=== PATIENT | male | born 1945 | race Asian ===

== ENCOUNTER 2022-06-05 10:09 | Emergency (ER) | payer OTHER ==
[2022-06-05 10:25] VITALS: BP 115/62; PULSE 58; RESP 17; TEMP 97.3; BMI 22.6
[2022-06-05] MEDS ORDERED: ACETAMINOPHEN 1000 MG/100 ML BAG IVPB ONE (12:05)
[2022-06-05] MEDS ORDERED: ACETAMINOPHEN INJECTION 100 ML IVPB ONE (12:17)
[2022-06-05 12:49] LABS: HEMATOCRIT 44.6 % (35.4-49); HEMOGLOBIN 15.4 GM/dL (11.7-16.9); MCH 35.3 pg (25.7-33.7); MCHC 34.4 g/dl (32.0-35.9); MEAN CELL VOLUME 102.6 fl (80-96); MEAN PLT VOLUME 7.7 fl (7.5-11.1); PLATELET COUNT 186 10^3/uL (134-434); RBC 4.34 M/mm3 (4.00-5.60); RDW 13.3 % (11.9-15.9); WHITE BLOOD COUNT 9.5 K/mm3 (4.0-10.0)
[2022-06-05 13:11] LABS: CALCIUM 9.3 mg/dL (8.5-10.1)
[2022-06-05 13:12] LABS: ALBUMIN 3.9 g/dl (3.4-5.0); BLOOD UREA NITROGEN 23.9 mg/dL (7-18)
[2022-06-05 13:15] LABS: CREATININE 0.9 mg/dL (0.55-1.3)
[2022-06-05 13:17] LABS: TOT PROT 6.8 g/dl (6.4-8.2)
[2022-06-05 13:21] LABS: PH,URINE 5.5 (5.0-8.0); URINE APPEARANCE CLEAR; URINE BILIRUBIN NEGATIVE (NEGATIVE); URINE COLOR YELLOW; URINE GLUCOSE (UA) NEGATIVE (NEGATIVE); URINE KETONE NEGATIVE (NEGATIVE); URINE LEUK ESTERASE NEGATIVE (NEGATIVE); URINE NITRITE NEGATIVE (NEGATIVE); URINE PROTEIN NEGATIVE (NEGATIVE)
[2022-06-05] MEDS ORDERED: KETOROLAC TROMETHAMINE 15 MG/ML VIAL IVPUSH ONE (15:23)
[2022-06-05] MEDS ORDERED: METHOCARBAMOL 500 MG TABLET PO ONE (15:24)
[2022-06-05] MEDS ORDERED: METHOCARBAMOL 500 MG TABLET ONE (15:29)
[2022-06-05] MEDS ORDERED: KETOROLAC TROMETHAMINE 15 MG/ML VIAL ONE (15:29)
== END 2022-06-05 16:41 | disposition home or self-care (01) ==
LOC: JERFT 10:09
PROC: 3E033GC Introduction of Other Therapeutic Substance into Peripheral Vein, Percutaneous Approach (ICD-10-PCS; principal; 2022-06-05)
DX: M54.16 Radiculopathy, lumbar region (principal)
CPT/HCPCS: 36415; 72131-TC; 74177-TC; 80053; 81003; 85027; 87086; 99285-25; Q9967

== ENCOUNTER 2022-06-11 11:48 | Inpatient (IN) | payer OTHER ==
[2022-06-11 11:52] VITALS: BMI 21.7
[2022-06-11] MEDS ORDERED: LACTATED RINGERS SOLUTION 1000 ML INFUS.BAG IV ONE ×2 (12:34→17:09)
[2022-06-11] MEDS ORDERED: ACETAMINOPHEN 1000 MG/100 ML BAG IVPB ONE (13:02)
[2022-06-11] MEDS ORDERED: ACETAMINOPHEN INJECTION 100 ML IVPB ONE (13:17)
[2022-06-11 14:02] LABS: BASO % 0.2 % (0-2.0); EOS % 1.2 % (0-4.5); HEMATOCRIT 38.7 % (35.4-49); HEMOGLOBIN 13.8 GM/dL (11.7-16.9); LYMPH % 13.7 % (8-40); MCH 36.4 pg (25.7-33.7); MCHC 35.6 g/dl (32.0-35.9); MEAN CELL VOLUME 102.2 fl (80-96); MEAN PLT VOLUME 7.5 fl (7.5-11.1); MONO % 11.5 % (3.8-10.2); NEUT % 73.4 % (42.8-82.8); PLATELET COUNT 136 10^3/uL (134-434); RBC 3.78 M/mm3 (4.00-5.60); RDW 13.2 % (11.9-15.9); WHITE BLOOD COUNT 7.9 K/mm3 (4.0-10.0)
[2022-06-11 14:22] LABS: CALCIUM 8.4 mg/dL (8.5-10.1)
[2022-06-11 14:23] LABS: ALBUMIN 3.4 g/dl (3.4-5.0); MAGNESIUM 2.1 mg/dL (1.8-2.4)
[2022-06-11 14:26] LABS: CREATININE 0.7 mg/dL (0.55-1.3); PHOSPHOROUS 2.8 mg/dL (2.5-4.9)
[2022-06-11 14:27] LABS: BILIRUBIN,TOTAL 0.8 mg/dL (0.2-1)
[2022-06-11 16:23] LABS: PH,URINE 5.5 (5.0-8.0); URINE APPEARANCE CLEAR; URINE BILIRUBIN NEGATIVE (NEGATIVE); URINE COLOR YELLOW; URINE GLUCOSE (UA) NEGATIVE (NEGATIVE); URINE KETONE NEGATIVE (NEGATIVE); URINE LEUK ESTERASE NEGATIVE (NEGATIVE); URINE NITRITE NEGATIVE (NEGATIVE); URINE PROTEIN NEGATIVE (NEGATIVE); URINE UROBILINOGEN 0.2 mg/dL (0.2-1.0)
[2022-06-11] MEDS ORDERED: morphine CARPU-JECT 4 MG/1 ML DISP.SYRIN IVPUSH ONE (16:36)
[2022-06-11] MEDS ORDERED: morphine SULFATE 4 MG/ML VIAL ONE (16:57)
[2022-06-11] MEDS ORDERED: ACETAMINOPHEN 325 MG TABLET (FP) PO PRN (17:08)
[2022-06-11 20:23] LABS: BLOOD UREA NITROGEN 18.8 mg/dL (7-18)
[2022-06-11 20:26] LABS: CREATININE 0.6 mg/dL (0.55-1.3)
[2022-06-11 20:28] LABS: BILIRUBIN,TOTAL 0.7 mg/dL (0.2-1); TOT PROT 5.3 g/dl (6.4-8.2)
[2022-06-11] MEDS: DEXTROSE 5%-0.45% SALINE 1,000 ML IV SCH (22:12)
[2022-06-12] MEDS: ENOXAPARIN NA (PORCINE) 40 MG/0.4 ML DISP.SYRIN SQ SCH (10:09)
[2022-06-12] MEDS: DEXTROSE 5%-0.45% SALINE 1,000 ML IV SCH ×2 (10:09→21:27)
[2022-06-12] MEDS: GABAPENTIN 100 MG CAPSULE PO SCH (21:20)
[2022-06-12] MEDS ORDERED: ATORVASTATIN CA 20 MG TABLET (FP) PO SCH (22:00)
[2022-06-13] MEDS: DEXTROSE 5%-0.45% SALINE 1,000 ML IV SCH (03:32)
[2022-06-13 08:02] VITALS: BP 122/60; PULSE 50; RESP 18; TEMP 97
[2022-06-13] MEDS ORDERED: TAMSULOSIN HCL 0.4 MG CAP PO SCH (08:30)
[2022-06-13] MEDS: GABAPENTIN 100 MG CAPSULE PO SCH (09:09)
[2022-06-13] MEDS: ENOXAPARIN NA (PORCINE) 40 MG/0.4 ML DISP.SYRIN SQ SCH (09:09)
[2022-06-13 09:28] LABS: HEMATOCRIT 40.6 % (35.4-49); HEMOGLOBIN 14.1 GM/dL (11.7-16.9); MCHC 34.9 g/dl (32.0-35.9); MEAN CELL VOLUME 103.4 fl (80-96); MEAN PLT VOLUME 8.2 fl (7.5-11.1); PLATELET COUNT 156 10^3/uL (134-434); RBC 3.92 M/mm3 (4.00-5.60); RDW 12.6 % (11.9-15.9); WHITE BLOOD COUNT 5.4 K/mm3 (4.0-10.0)
[2022-06-13] MEDS ORDERED: TIOTROPIUM/OLODATEROL HCL (STIOLTO) 4 GM INHALER IH SCH (10:00)
[2022-06-13] MEDS ORDERED: PANTOPRAZOLE 40 MG TABLET PO SCH (10:00)
[2022-06-13] MEDS ORDERED: PATIENT'S OWN MEDICATION (NON-FORMULARY) (Olopatadine Hcl [Olopatadine Hcl] 2.5 ML Drops) OP SCH (10:00)
[2022-06-13 10:20] LABS: CALCIUM 8.2 mg/dL (8.5-10.1)
[2022-06-13 10:21] LABS: MAGNESIUM 2.1 mg/dL (1.8-2.4)
[2022-06-13 10:24] LABS: BILIRUBIN,TOTAL 1.4 mg/dL (0.2-1); CREATININE 0.6 mg/dL (0.55-1.3); PHOSPHOROUS 2.3 mg/dL (2.5-4.9); TOT PROT 5.7 g/dl (6.4-8.2)
[2022-06-13] MEDS ORDERED: CHOLESTYRAMINE/SUCROSE 4 GM PACKET PO SCH (11:15)
[2022-06-13] MEDS ORDERED: LACTOBACILLUS ACIDOPHILUS 1 TABLET PO SCH (11:30)
[2022-06-13] MEDS ORDERED: NAPH,MB-DB/K PH,MBDB POWDER PACKET PO SCH (14:00)
== END 2022-06-13 17:09 | disposition home or self-care (01) | DRG 641 ==
LOC: JER 11:48 → JERBED 16:31 → J4S 21:53
PROVIDERS: ADMIT Internal Medicine; ATTEND Internal Medicine
DX: E86.0 Dehydration (principal); R19.7 Diarrhea, unspecified; R10.9 Unspecified abdominal pain; F17.210 Nicotine dependence, cigarettes, uncomplicated; J44.9 Chronic obstructive pulmonary disease, unspecified; E78.5 Hyperlipidemia, unspecified; N40.0 Benign prostatic hyperplasia without lower urinary tract symptoms
CPT/HCPCS: 0241U-QW; 36415; 74177-TC; 80053; 81003; 82272; 82607; 82746; 83605; 83690; 83735; 84100; 85025; 85027; 87045; 87046; 87086; 87186; 87209; 87324; 87449; 93005; 93010; 97116-GP; 97161-GP; 99285-25; J3535